=== PATIENT | female | born 1965 | race Caucasian/White ===

== ENCOUNTER 2021-07-15 21:40 | Observation (INO) ==
[2021-07-15] MEDS ORDERED: 0.9 % Sodium Chloride 1,000 ML IVC ONE (22:31)
[2021-07-15] MEDS ORDERED: *HR* HYDROmorphone (PF) 1 MG/ML SYRINGE IVP ONE (22:31)
[2021-07-15] MEDS ORDERED: Isovue-370 500 ML BOTTLE IVP ONE (22:32)
[2021-07-15 22:51] LABS: Basophils % 0.4 %; Eosinophils # 0.3 K/mcL (0.0-0.6); Eosinophils % 2.6 %; Hemoglobin 12.7 g/dL (11.5-15.4); Immature Granulocytes % 0.4 % (0-4); Lymphocytes # 2.6 K/mcL (0.6-4.6); Mean Corpuscular HGB Conc 33.4 g/dL (31.6-35.5); Mean Corpuscular Hemoglobin 28.9 pg (28.0-33.3); Mean Corpuscular Volume 86.4 fL (83.0-100.0); Mean Platelet Volume 9.9 fL (9.4-12.4); Monocytes # 0.7 K/mcL (0.0-1.3); Monocytes % 6.1 %; Neutrophils # 7.3 K/mcL (1.6-8.9); Platelet Count 227 K/mcL (140-400); Red Cell Distribution Width 12.1 % (11.5-14.5); Segmented Neutrophils % 66.5 %; White Blood Count 10.9 K/mcL (4.3-11.1)
[2021-07-15 22:55] LABS: Alanine Aminotransferase 16 Units/L (7-52); Albumin 4.5 g/dL (3.5-5.7); Albumin/Globulin Ratio 1.7 (1.1-2.2); Alkaline Phosphatase 63 Units/L (34-104); Aspartate Amino Transferase 18 Units/L (13-39); BUN/Creatinine Ratio 17 (6-26); Bilirubin,Indirect 0.6 mg/dL (0.0-1.0); Bilirubin,Total 0.6 mg/dL (0.3-1.0); Blood Urea Nitrogen 16 mg/dL (6-20); Calcium 9.5 mg/dL (8.6-10.3); Carbon Dioxide 26 mEq/L (23-29); Chloride 107 mEq/L (98-107); Globulin 2.7 g/dL (2.4-3.5); Glucose 101 mg/dL (70-105); Lipase 37 Units/L (11-82); Osmolality,Calculated 295 (280-300); Potassium 3.7 mEq/L (3.5-5.1); Sodium 142 mEq/L (136-145); Total Protein 7.2 g/dL (6.4-8.9); eGFR For African Americans > 60 (> 60); eGFR For Non-African Americans 60 (> 60)
[2021-07-15 23:38] LABS: Bilirubin,Urine Negative (Negative); Blood,Urine Negative (Negative); Clarity,Urine Turbid (Clear); Color,Urine Colorless (Yellow); Glucose,Urine (UA) Normal (Normal); Ketones,Urine Negative (Negative); Leukocyte Esterase,Urine Large (Negative); Mucus,Urine Few per lpf (None-Few); Nitrite,Urine Negative (Negative); Protein,Urine Negative (Neg-Trace); Renal Epithelial Cells,Urine Few per hpf (None-Few); Specific Gravity,Urine 1.011 (1.010-1.025); Squamous Epithelial Cell,Urine Few per hpf (None-Few); Transitional Epi Cells,Urine Few per hpf (None-Few); Urobilinogen,Urine Normal (Normal); WBC,Urine TNTC per hpf (0-3)
[2021-07-16] MEDS ORDERED: MetroNIDAZOLE 500 MG/100 ML 500 MG/100 ML BAG IVPB ONE (01:29)
[2021-07-16] MEDS ORDERED: cefTRIAXone 1,000 MG in Water for inj. (sterile) 10 ML IVP ONE (01:30)
[2021-07-16 02:14] LABS: INR 1.1; Prothrombin Time 11.9 Seconds (9.4-12.1)
[2021-07-16 02:17] LABS: Activated Partial Thrombo Time 29.1 Seconds (26.0-36.0)
[2021-07-16] MEDS ORDERED: Ondansetron 4 MG/2 ML VIAL IVP PRN (03:03)
[2021-07-16] MEDS ORDERED: *HR* HYDROmorphone (PF) 1 MG/ML SYRINGE IVP PRN (03:04)
[2021-07-16] MEDS ORDERED: D5% in Water 1,000 ML IVC PRN (03:09)
[2021-07-16] MEDS ORDERED: *HR* Dextrose 50 % in Water (Syg) 50 ML SYRINGE IVP PRN (03:09)
[2021-07-16] MEDS ORDERED: Dextrose 4 GM Chewable Tablets PO PRN ×2 (03:09)
[2021-07-16] MEDS: 0.9 % Sodium Chloride 1,000 ML IVC SCH ×2 (03:24→18:10)
[2021-07-16] MEDS ORDERED: cefOXitin 2,000 MG in Water for inj. (sterile) 20 ML IVP SCH (08:00)
[2021-07-16] MEDS ORDERED: *HR* HYDROmorphone PF 0.5 MG/0.5 ML SYRINGE IVP PRN (08:24)
[2021-07-16] MEDS ORDERED: *HR* Rocuronium Bromide 50 MG/5 ML VIAL ONE (08:39)
[2021-07-16] MEDS ORDERED: *HR* FentaNYL (PF) 100 MCG/2 ML VIAL ONE ×2 (08:39→08:52)
[2021-07-16] MEDS ORDERED: Lidocaine -MPF 4% 5 ML AMPUL ONE (08:39)
[2021-07-16] MEDS ORDERED: *HR* Midazolam HCl 2 MG/2 ML VIAL ONE (08:39)
[2021-07-16] MEDS ORDERED: Lidocaine -MPF 2% 2 ML VIAL ONE (08:39)
[2021-07-16] MEDS ORDERED: Ondansetron 4 MG/2 ML VIAL ONE (08:39)
[2021-07-16] MEDS ORDERED: *HR* Propofol 200 MG/20 ML VIAL IVP ONE (08:40)
[2021-07-16] MEDS ORDERED: CefOXitin 2,000 MG VIAL ONE (08:52)
[2021-07-16] MEDS ORDERED: Lacri-Lube 3.5 GM TUBE ONE (09:39)
[2021-07-16] MEDS ORDERED: Sugammadex Sodium 200 MG/2 ML VIAL IV ONE (10:33)
[2021-07-16] MEDS ORDERED: Ibuprofen 600 MG TABLET PO PRN (10:51)
[2021-07-16] MEDS ORDERED: Acetaminophen 325 MG TABLET PO PRN (10:51)
[2021-07-16] MEDS ORDERED: *HR* OxyCODONE Immed Rel 5 MG TABLET PO PRN (10:52)
[2021-07-16] MEDS: *HR* OxyCODONE Immed Rel 5 MG TABLET PO PRN ×2 (18:10→23:32)
[2021-07-17] MEDS: *HR* OxyCODONE Immed Rel 5 MG TABLET PO PRN (04:17)
[2021-07-17] MEDS: 0.9 % Sodium Chloride 1,000 ML IVC SCH (04:18)
[2021-07-17] MEDS ORDERED: Ketorolac 30 MG/ML VIAL IVP ONE (09:35)
[2021-07-17] MEDS ORDERED: *HR* HYDROmorphone (PF) 1 MG/ML SYRINGE IVP ONE (09:45)
[2021-07-17] MEDS ORDERED: polyethylene glycoL 3350 17 GM POWD.PACK PO ONE (13:00)
[2021-07-17] MEDS ORDERED: Ibuprofen 800 MG TABLET PO ONE (13:00)
[2021-07-17 13:59] VITALS: BP 103/61; PULSE 99; TEMP 98.5; O2SAT 99
[2021-07-17] MEDS ORDERED: Ondansetron 4 MG/2 ML VIAL IVP PRN (14:05)
== END 2021-07-17 16:11 | disposition home or self-care (01) ==
LOC: EMEROOARM 21:40 → 3ANU 21:40
PROVIDERS: ADMIT Surgery; ATTEND Surgery